=== PATIENT | male | born 1955 | race Caucasian/White ===

== ENCOUNTER 2017-02-08 11:02 | Emergency (ER) | payer OTHER ==
[~2017-02-08 11:02] MED LIST: DICLOFENAC POTA50 M1 PO; PERCOCET 5-3251 EACH PO
[2017-02-08 11:32] LABS: BASO % 0.1 % (0-2); EOS % 0.3 % (0-7); HCT-HEMATOCRIT 44.2 % (36.0-53.5); HGB-HEMOGLOBIN 15.2 gm/dl (13.5-17.0); IMMATURE GRANULOCYTES ABSOLUTE 0.05 tho/cmm (0-0.03); IMMATURE GRANULOCYTES PERCENT 0.4 % (0-0.3); LYMPH % 14.2 % (20-45); LYMPH ABSOLUTE COUNT 1.7 tho/cmm (0.8-4.5); MCH (MEAN CORPUSCULAR HGB) 29.9 pg (28.0-32.0); MCHC MEAN CORPUSCULAR HGB CONC 34.4 % (32.0-36.0); MCV (MEAN CELL VOLUME) 86.8 fl (82.0-96.0); MEAN PLATELET VOLUME 9.4 cmc (9.4-12.4); MONO % 5.7 % (0-12); MONOCYTE ABSOLUTE COUNT 0.7 tho/cmm (0.0-1.2); NEUTROPHIL ABSOLUTE COUNT 9.5 tho/cmm (1.6-8.0); NEUTROPHIL-AUTOMATED 9.5 tho/cmm (1.6-8.0); NEUTROPHILS % 79.3 % (40-80); PLATELET COUNT 268 tho/cmm (150-450); RED BLOOD COUNT 5.09 mil/cmm (4.40-5.70); RED CELL DISTRIBUTION WIDTH 13.8 % (12.4-16.4)
[2017-02-08 11:51] LABS: ALBUMIN 3.8 g/dl (3.5-5.0); ALKALINE PHOSPHATASE 101 U/L (33-138); ALT/SGPT 42 U/L (12-78); ANION GAP 14 mmol/L (0-20); AST/SGOT 20 U/L (10-40); BILIRUBIN,TOTAL 0.7 mg/dl (0.0-1.5); BLOOD UREA NITROGEN 14 mg/dl (6-24); CALCIUM 8.4 mg/dl (8.5-10.5); CARBON DIOXIDE-VENOUS 25 mmol/L (22-32); CHLORIDE 107 mmol/l (96-110); CREATININE 0.93 mg/dl (0.60-1.30); GLUCOSE 117 mg/dL (70-110); LIPASE 47 U/L (73-393); POTASSIUM 4.2 mmol/L (3.7-5.1); SODIUM 142 mmol/L (135-145); eGFR VALUE FOR BLACK >90 mL/Min
[2017-02-08 11:53] LABS: C-REACTIVE PROTEIN <0.3 mg/dl (0-0.9)
[2017-02-08 12:12] LABS: URINE APPEARANCE CLEAR; URINE BILIRUBIN NEGATIVE (NEG); URINE BLOOD NEGATIVE (NEG); URINE COLOR YELLOW; URINE GLUCOSE (UA) NEGATIVE (NEG); URINE KETONE NEGATIVE (NEG); URINE LEUKOCYTE ESTERASE NEGATIVE (NEG); URINE NITRITE NEGATIVE (NEG); URINE PROTEIN SMALL (NEG); URINE SPECIFIC GRAVITY 1.025 (1.003-1.030)
[2017-02-08 12:18] LABS: URINE BACTERIA 1+; URINE RBC 0 /[HPF] (0-5); URINE WBC 0 /[HPF] (0-5)
[2017-02-08] MEDS ORDERED: NORCO 5-325 TA1 EACH PO (12:59)
[2017-02-08] MEDS ORDERED: ZOFRAN ODT4 MG PO (12:59)
[2017-02-08] MEDS ORDERED: PRILOSEC OTC20 M1 PO (12:59)
[2017-03-04] MEDS ORDERED: OMEPRAZOLE20 M3 PO (14:57)
[2017-03-04] MEDS ORDERED: ZOFRAN4 M2 PO (14:57)
[2017-03-04] MEDS ORDERED: HYDROCODON-ACE1 EA16 PO (14:57)
== END 2017-02-08 13:29 ==
LOC: EDMED 11:02
PROVIDERS: Emergency Medicine
DX: K57.90 Diverticulosis of intestine, part unspecified, without perforation or abscess without bleeding (principal); K21.9 Gastro-esophageal reflux disease without esophagitis; Z87.442 Personal history of urinary calculi; Z79.899 Other long term (current) drug therapy; Z98.890 Other specified postprocedural states
CPT/HCPCS: C9113; J1170; J2405; J7030; Q9967